=== PATIENT | female | born 1970 | race Caucasian/White ===

== ENCOUNTER 2016-10-23 21:06 | Emergency (ER) | payer OTHER ==
[~2016-10-23] VITALS: Ht 167.6 cm; Wt 68.0 kg
--- NOTE | 2016-10-23 23:10 | NUR ---
Patient discharged to home in stable conditon. Written and verbal after care instructions given. Patient verbalizes understanding of instructions. Ambulated from ER with stable gait. All belongings with patient.
[2016-10-23 23:11] VITALS: BP 135/74
== END 2016-10-23 23:12 | disposition home or self-care (01) ==
LOC: ER 21:07
DX: H11.31 Conjunctival hemorrhage, right eye (principal); R51 Headache; Z90.710 Acquired absence of both cervix and uterus; Z85.528 Personal history of other malignant neoplasm of kidney
CPT/HCPCS: 70450; A4663